=== PATIENT | female | born 1950 | race Caucasian/White ===

== ENCOUNTER 2018-08-06 11:19 | Day surgery (SDC) | payer BC, OTHER ==
[2018-08-06] MEDS ORDERED: PROPOFOL 60 ML (12:39)
== END 2018-08-06 15:00 | disposition home or self-care (01) ==
LOC: GIL 11:19
DX: Z12.11 Encounter for screening for malignant neoplasm of colon (principal); D12.3 Benign neoplasm of transverse colon; D12.8 Benign neoplasm of rectum; K57.30 Diverticulosis of large intestine without perforation or abscess without bleeding; I10 Essential (primary) hypertension
CPT/HCPCS: 45380; 88305